=== PATIENT | male | born 1975 | race Caucasian/White ===

== ENCOUNTER 2022-02-02 11:47 | Outpatient (CLI) | payer OTHER, SELFPAY ==
[2022-02-02 15:45] LABS: Chloride* 106 mmol/L (96-114); Potassium* 4.6 mmol/L (3.6-5.1); Sodium* 141 mmol/L (135-149)
[2022-02-02 15:47] LABS: Cholesterol* 213 mg/dL (90-199); Creatinine* 0.8 mg/dL (0.5-1.5); Estimated Glomerular Filt Rate 112 ml/min
[2022-02-02 15:48] LABS: Blood Urea Nitrogen* 17 mg/dL (5-24); Calcium* 9.4 mg/dL (8.4-10.6); Carbon Dioxide* 27 mmol/L (20-32); Glucose* 108 mg/dL (60-115); HDL Cholesterol* 37 mg/dL (>=40); LDL Cholesterol Calculated 157 mg/dL (<100); Triglycerides* 94 mg/dL (40-149)
[2022-02-02 15:54] LABS: PSA Screen* 0.66 ng/mL (0.10-4.00)
[2022-02-05 09:44] LABS: Albumin* 4.5 g/dL (3.3-5.0)
[2022-02-05 09:47] LABS: Alkaline Phosphatase* 45 U/L (40-150); Aspartate Amino Transferase* 38 U/L (12-35); Bilirubin Total* 0.3 mg/dL (0.1-1.5)
[2022-02-05 09:48] LABS: Alanine Aminotransferase* 41 U/L (4-50)
== END 2022-02-02 11:48 | disposition home or self-care (01) ==
PROVIDERS: PCP Family Medicine; Visit Provider Family Medicine
DX: Z00.00 Encounter for general adult medical examination without abnormal findings (principal); E78.00 Pure hypercholesterolemia, unspecified; Z12.5 Encounter for screening for malignant neoplasm of prostate
CPT/HCPCS: 80048; 80061; 80076; 84153

== ENCOUNTER 2022-03-12 11:06 | Outpatient (CLI) | payer OTHER, SELFPAY ==
--- NOTE | 2022-03-12 12:32 | W.ANESCHARGE ---
Anesthesia Charges Start Date/Time Anesthesia Start Date: 03/12/22 Anesthesia Start Time: 11:55 Stop Date/Time Anesthesia Stop Date: 03/12/22 Anesthesia Stop Time: 12:35 Summary Emergency: No
== END 2022-03-12 11:07 | disposition home or self-care (01) ==
PROVIDERS: PCP Family Medicine; Visit Provider Surgery
DX: Z12.11 Encounter for screening for malignant neoplasm of colon (principal); K63.5 Polyp of colon; Z83.71 Family history of colonic polyps
CPT/HCPCS: 00811; 45385; 88305; J2704

== ENCOUNTER 2022-05-06 11:05 | Outpatient (CLI) | payer OTHER, SELFPAY ==
[2022-05-06 13:43] LABS: Alanine Aminotransferase* 77 U/L (4-50); HDL Cholesterol* 44 mg/dL (>=40); Triglycerides* 78 mg/dL (40-149)
[2022-05-06 15:19] LABS: Cholesterol* 164 mg/dL (90-199); LDL Cholesterol Calculated 104 mg/dL (<100)
== END 2022-05-06 11:06 | disposition home or self-care (01) ==
PROVIDERS: PCP Family Medicine; Visit Provider Family Medicine
DX: E78.5 Hyperlipidemia, unspecified (principal)
CPT/HCPCS: 80061; 84460

== ENCOUNTER 2024-04-12 14:40 | Outpatient (CLI) | payer OTHER, SELFPAY | END 2024-04-12 14:41 | disposition home or self-care (01) | LOC: NFLDREF 04-13 12:01 | PROVIDERS: PCP Family Medicine; Referring Provider Family Medicine; Visit Provider Physician Assistant Medical | DX: R35.0 Frequency of micturition (principal) | CPT/HCPCS: 87086 ==